=== PATIENT | female | born 1945 | race Caucasian/White ===

== ENCOUNTER → 2022-04-09 08:45 | Outpatient (CLI) | payer MEDICARE, SELFPAY ==
[2022-04-10 04:41] LABS: Candida species Negative (Negative); Gardnerella vaginalis Negative (Negative); Trichomoas vaginalis Negative (Negative)
== END ==
PROVIDERS: PCP Family Medicine; Visit Provider Obstetrics & Gynecology
DX: N89.8 Other specified noninflammatory disorders of vagina (principal)
CPT/HCPCS: 87480; 87510; 87660